=== PATIENT | female | born 1950 | race Hispanic/Latino ===

== ENCOUNTER 2016-11-09 22:30 | Emergency (ER) | payer MEDICARE ==
[2016-11-10] MEDS ORDERED: NACL 0.9% 500 ML IR ONE (01:01)
--- NOTE | 2016-11-10 01:46 | Emergency Department Report ---
ED Female HPI - General Chief complaint: Urogenital-Female Stated complaint: CATHETER PROBLEM Time Seen by Provider: 11/10/16 01:34 Source: patient, family, RN notes reviewed Mode of arrival: Wheelchair Limitations: No Limitations - History of Present Illness Initial comments: This is a 66-year-old female. She is previously unknown to me. Her urology specialist is Dr. 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 She was discharged with a Pink catheter. This was this past Monday. She reports that the catheter malfunctioned on Monday, she went to her urologist office, had it flushed. She now presents today with inability to flush Pink catheter. There is no nausea, vomiting, fevers, chills, chest pain or shortness of breath. She is currently taking prophylactic ciprofloxacin. Prior to my evaluation, under my verbal orders, the nurse flushed the tubing with sterile saline, and switch the catheter bag, with immediate resolution of the patient's problems. Currently, the patient denies all complaints, and reports that she is ready to go home. MD Complaint: other -: Gradual Consistency: now resolved Improves with: other (as per history of present illness) Worsens with: other (as per history of present illness) Are you Now?: No Associated Symptoms: denies other symptoms - Related Data Previous Rx's Medication Instructions Recorded Last Taken Type Aspirin [Aspirin BABY CHEW TAB] 81 mg PO QDAY #30 tab.chew 12/08/15 Unknown Rx Simvastatin [Zocor TAB] 40 mg PO QHS #30 tablet 12/08/15 Unknown Rx Allergies Allergy/AdvReac Type Severity Reaction Status Date / Time Penicillins Allergy Unknown Verified 03/25/15 18:18 ED Review of Systems ROS: Stated complaint: CATHETER PROBLEM Other details as noted in HPI ED Past Medical Hx - Past Medical History Previous Medical History?: Yes Hx Hypertension: Yes Hx Psychiatric Treatment: Yes (depression, anxiety,) Additional medical history: Obesity - Surgical History Past Surgical History?: Yes Additional Surgical History: X 2, bladder - Social History Smoking Status: Never Smoker Substance Use Type: Alcohol - Medications Home Medications: Home Medications Medication Instructions Recorded Confirmed Last Taken Type Aspirin [Aspirin BABY CHEW TAB] 81 mg PO QDAY #30 tab.chew 12/08/15 Unknown Rx Simvastatin [Zocor TAB] 40 mg PO QHS #30 tablet 12/08/15 Unknown Rx ED Physical Exam - General Limitations: No Limitations General appearance: alert, in no apparent distress - Head Head exam: Present: atraumatic, normocephalic - Eye Eye exam: Present: normal appearance, EOMI. Absent: nystagmus - ENT ENT exam: Present: normal exam, normal orophraynx, mucous membranes moist, normal external ear exam - Neck Neck exam: Present: normal inspection, full ROM. Absent: tenderness, meningismus - Respiratory Respiratory exam: Present: normal lung sounds bilaterally. Absent: respiratory distress, wheezes, rales, rhonchi, stridor, chest wall tenderness, accessory muscle use, decreased breath sounds, prolonged expiratory - Cardiovascular Cardiovascular Exam: Present: regular rate, normal rhythm, normal heart sounds. Absent: bradycardia, tachycardia, irregular rhythm, systolic murmur, diastolic murmur, rubs, gallop - GI/Abdominal GI/Abdominal exam: Present: soft, normal bowel sounds. Absent: distended, tenderness, guarding, rebound, rigid, pulsatile mass - External exam: Present: normal external exam (a Pink catheter is in place a Pink catheter is in place draining clear yellow urine), other (during external gynecologic examination, I am escorted by ER surveillance technician Rohini Kapoor.) - Extremities Exam Extremities exam: Present: normal inspection - Back Exam Back exam: Present: normal inspection, full ROM. Absent: tenderness, CVA tenderness (R), CVA tenderness (L), muscle spasm, paraspinal tenderness, vertebral tenderness - Neurological Exam Neurological exam: Present: alert, oriented X3, normal gait, other (Extraocular movements intact. Tongue midline. No facial droop. Facial sensation intact to light touch in the V1, V2, V3 distribution bilaterally. 5 and 5 strength in 4 extremities.. Sensation is intact to light touch in 4 extremities.). Absent : motor sensory deficit - Psychiatric Psychiatric exam: Present: normal affect, normal mood - Skin Skin exam: Present: warm, dry, intact, normal color. Absent: rash ED Course Vital Signs 11/10/16 00:06 Temperature 97.8 F Pulse Rate 63 Respiratory 18 Rate Blood Pressure 146/67 [Right] O2 Sat by Pulse 96 Oximetry - Reevaluation(s) Reevaluation #1: 11/10/16 01:51 Differential diagnosis: Pink catheter malfunction, bladder clots, urinary tract infection Assessment and plan: 66-year-old female with resolved Pink catheter malfunction. She is afebrile with reassuring vital signs. She has no pain or tenderness at this time. She wants to go home. She started taking prophylactic ciprofloxacin. She prefers to have her primary care urologist follow-up on the urinalysis results and urine culture results. She will be discharged with a Pink catheter attached to a large draining bag, and is given a leg bag for comfort. Return precautions were extensively reviewed. ED Medical Decision Making - Lab Data Vital Signs 11/10/16 00:06 Temperature 97.8 F Pulse Rate 63 Respiratory 18 Rate Blood Pressure 146/67 [Right] O2 Sat by Pulse 96 Oximetry Critical care attestation.: If time is entered above; I have spent that time in minutes in the direct care of this critically ill patient, excluding procedure time. ED Disposition Clinical Impression: Malfunction of Pink catheter Disposition: DISCHARGED TO HOME OR SELFCARE Is pt being admited?: No Does the pt Need Aspirin: No Condition: Stable Instructions: Pink Catheter Placement and Care (ED), Pink Catheter Insertion (ED) Additional Instructions: Continue current outpatient medications. Follow-up with your urology specialist within the next week. Cultures and urinalysis were sent today, had the urology specialist contact medical records department to obtain these results. Return to the ER right away with fevers, chills, chest pain, shortness of breath, intractable nausea or vomiting, inability to tolerate liquid feeds, recurrent obstruction of the Pink catheter tube. [facility]: ([place]) Carlos Long MD [employer] 4.0 1 Google review Urologist in [place], [place] Address: [facility] [address], [place] [address] Hours: Open today [id number] Suggest an edit Reviews from the w Referrals: MOSES JORGE MD [Primary Care Provider] - 3-5 Days GOLDEN KOHLI MD [Referring] - 3-5 Days
[2016-11-10 02:03] VITALS: BP 137/66
[2016-11-10 02:12] LABS: Bacteria,Urine 1+ /HPF (Negative); Bilirubin,Urine NEG (Negative); Blood,Urine LG (Negative); Ketones,Urine NEG (Negative); Leukocyte Esterase,Urine NEG (Negative); Mucus,Urine FEW /HPF; Nitrite,Urine NEG (Negative); Protein,Urine <15 mg/dL mg/dL (Negative); Urobilinogen,Urine < 2.0 mg/dL (<2.0)
[2016-11-10] MEDS ORDERED: NACL 0.9% IR ONE (03:22)
== END 2016-11-10 02:02 | disposition home or self-care (01) ==
LOC: ED 22:30
DX: T83.098A Other mechanical complication of other urinary catheter, initial encounter (principal); I10 Essential (primary) hypertension; F32.9 Major depressive disorder, single episode, unspecified; F41.9 Anxiety disorder, unspecified; Z88.0 Allergy status to penicillin; Y84.6 Urinary catheterization as the cause of abnormal reaction of the patient, or of later complication, without mention of misadventure at the time of the procedure; Y92.89 Other specified places as the place of occurrence of the external cause
CPT/HCPCS: 51702; 81001; 87086